=== PATIENT | male | born 1940 | race Caucasian/White ===

== ENCOUNTER → 2021-12-27 16:50 | Outpatient (CLI) | payer MEDICARE, BC, SELFPAY ==
--- NOTE | 2021-12-27 | DI.MRI.S_ITS ---
PROCEDURE: MR LUMBAR SPINE WO CON INDICATIONS: radiculopathy, lumbar region TECHNIQUE: Noncontrast sagittal T1 spin echo and T2 fast echo, sagittal STIR, and T2 fast spin echo through the lumbar spine. In cases with scoliosis, additional coronal T2 fast spin echo may be performed. COMPARISON: None. FINDINGS: Image quality: Excellent. Alignment and Curvature: There is minimal anterolisthesis at L3-L4 and mild grade 1 anterolisthesis at L4-L5. No associated pars defects are seen. Bone Marrow: Marrow is of normal overall signal. Scattered foci are seen, which are hyperintense on T1-weighted and T2-weighted imaging, which are most consistent with benign vertebral body hemangiomas. Fatty metaplasia can be seen involving the L5 level the sacrum. No acute vertebral body compression fractures. Spinal Cord: Conus medullaris terminates at the L1 level. Visualized cord demonstrates normal signal and size. Paraspinous Soft Tissues: No paravertebral masses. Bilateral renal cysts are seen, including a 4 cm right renal cyst. T12-L1: No significant abnormality is seen. L1-L2: The disc height is well-preserved. Loss of disc signal is seen at this level. Mild to moderate disc bulge is seen, which is eccentric to the left. There is moderate left-sided and [id number] right-sided neural foraminal narrowing. Mild central canal narrowing is seen. L2-L3: The disc height is well-preserved. Loss of disc signal is seen at this level. Mild to moderate disc bulge is seen. At least moderate facet hypertrophy is seen at this level. Associated hypertrophy of the ligamentum flavum can be seen. There is moderate right-sided and [id number] left-sided neural foraminal narrowing. Mild to moderate central canal narrowing is seen. L3-L4: Mild loss of disc height is seen. Loss of disc signal is seen. At least moderate disc bulge is seen. There is a superimposed central disc protrusion. At least moderate facet hypertrophy is seen. Associated hypertrophy of the ligamentum flavum can be seen. Moderate to severe bilateral neural foraminal narrowing can be seen. There is a degree of compression seen upon the exiting nerve roots. Severe central canal narrowing is seen at this level, as on series 5, image 19. L4-L5: Moderate loss of disc height and disc signal can be seen. Moderate generalized disc bulge is seen. Moderate to prominent facet hypertrophy is seen at this level. Mild to moderate bilateral neural foraminal narrowing can be seen. Moderate to severe central canal narrowing is seen, as on series 6, image 6. L5-S1: Moderate loss of disc height is seen. Loss of disc signal is seen. Mild generalized disc bulge is seen. Mild to moderate facet hypertrophy is seen. No significant neural foraminal or central canal narrowing can be seen. IMPRESSION: Multiple levels of lumbar spine degenerative change are seen, which are worst at the L3-L4 level, where there is moderate to severe bilateral neural foraminal narrowing and severe central canal narrowing. Dictated by: Laurent Nolen M.D. on 12/27/2021 at 16:44 Approved by: Laurent Nolen M.D. on 12/27/2021 at 16:48
== END ==
PROVIDERS: Family Provider Family Medicine; PCP Family Medicine; Referring Provider Nurse Practitioner; Visit Provider Nurse Practitioner
DX: M47.26 Other spondylosis with radiculopathy, lumbar region (principal); M47.27 Other spondylosis with radiculopathy, lumbosacral region; M48.061 Spinal stenosis, lumbar region without neurogenic claudication; M48.07 Spinal stenosis, lumbosacral region
CPT/HCPCS: 72148